=== PATIENT | female | born 1985 | race Hispanic/Latino ===

== ENCOUNTER → 2018-08-28 | Outpatient (CLI) | payer OTHER ==
[~2018-08-28] MED LIST: LEVO25TA5 PO; MIRA3350 PO
[2018-08-28 13:44] LABS: BASO # 0.1 10^3/uL (0.0-0.2); BASO % 0.8 % (0.0-1.0); EOS # 0.1 10^3/uL (0.0-0.50); EOS % 0.9 % (0.0-3.0); HEMATOCRIT 42.9 % (36.0-47.0); LYMPH # 2.1 10^3/uL (1.5-4.5); LYMPH % 32.4 % (24.0-44.0); MEAN CORPUSCULAR HEMOGLOBIN 28.9 pg (27.0-33.0); MEAN CORPUSCULAR HGB CONC 32.6 g/dl (32.0-36.5); MEAN CORPUSCULAR VOLUME 88.5 fl (80.0-96.0); MONO # 0.5 10^3/uL (0.0-0.8); MONO % 7.4 % (0.0-5.0); NEUTROPHILS # 3.8 10^3/uL (1.8-7.7); PLATELET COUNT, AUTOMATED 308 10^3/uL (150-450); RED BLOOD COUNT 4.85 10^6/uL (4.00-5.40); WHITE BLOOD COUNT 6.5 10^3/uL (4.0-10.0)
[2018-08-28 14:42] LABS: ALBUMIN 4.1 GM/DL (3.2-5.2); ALT/SGPT 16 U/L (12-78); BILIRUBIN,TOTAL 1.3 MG/DL (0.2-1.0); BLOOD UREA NITROGEN 10 MG/DL (7-18); CALCIUM LEVEL 8.9 MG/DL (8.5-10.1); CARBON DIOXIDE LEVEL 25 MEQ/L (21-32); CHLORIDE LEVEL 107 MEQ/L (98-107); CHOLESTEROL LEVEL 227 MG/DL (<200); CHOLESTEROL RISK RATIO 5.159 (<5); CREATININE FOR GFR 0.75 MG/DL (0.55-1.30); FREE T4 1.01 NG/DL (0.76-1.46); GLOMERULAR FILTRATION RATE > 60.0 (>60); GLUCOSE, FASTING 86 MG/DL (70-100); HDL CHOLESTEROL 44 MG/DL (>40); LDL CHOLESTEROL 162 MG/DL (<100); NON-HDL-C 183 MG/DL; POTASSIUM SERUM 4.3 MEQ/L (3.5-5.1); SODIUM LEVEL 140 MEQ/L (136-145); TRIGLYCERIDES LEVEL 106 MG/DL (<150)
[2018-08-28 15:27] LABS: TOTAL 25(OH) VITAMIN D 23.6 NG/ML (30.0-100.0)
--- NOTE | 2018-08-28 19:55 | REP ---
Clinical: Left shoulder pain . Technique: Internal rotation, external rotation, and Y view. Findings: No acute fracture or dislocation. The acromioclavicular and glenohumeral joints are intact. No periarticular calcifications or degenerative changes are appreciated. Sub acromial space is normal. Surrounding soft tissues are unremarkable. Impression: Normal left shoulder radiographs. Electronically Signed by Madhu Garrett MD 08/28/2018 07:47 P
[2018-08-29 10:54] LABS: THYROID PEROXIDASE ANTIBODY < 28.0 U/ML (<60.0)
== END ==
LOC: M SMT 09:02
PROVIDERS: ATTEND Physician Assistant
DX: Z13.29 Encounter for screening for other suspected endocrine disorder (principal); E03.9 Hypothyroidism, unspecified; M25.512 Pain in left shoulder

== ENCOUNTER → 2018-12-03 | Outpatient (REF) | payer OTHER ==
[2018-12-03 18:15] LABS: ALBUMIN 4.2 GM/DL (3.2-5.2); ALT/SGPT 19 U/L (12-78); BILIRUBIN,TOTAL 1.1 MG/DL (0.2-1.0); BLOOD UREA NITROGEN 10 MG/DL (7-18); CARBON DIOXIDE LEVEL 27 MEQ/L (21-32); CHLORIDE LEVEL 107 MEQ/L (98-107); CREATININE FOR GFR 0.73 MG/DL (0.55-1.30); FREE T4 0.96 NG/DL (0.76-1.46); GLOMERULAR FILTRATION RATE > 60.0 (>60); GLUCOSE, FASTING 87 MG/DL (70-100); POTASSIUM SERUM 3.9 MEQ/L (3.5-5.1); SODIUM LEVEL 139 MEQ/L (136-145); TOTAL PROTEIN 7.3 GM/DL (6.4-8.2)
[2018-12-03 18:18] LABS: LUTEINIZING HORMONE 4.1 mIU/mL
[2018-12-03 18:32] LABS: HEMOGLOBIN A1c 5.4 %
[2018-12-06 00:06] LABS: INSULIN LEVEL 9.2 uIU/mL (2.6-24.9)
== END ==
LOC: M LABSMT 16:58
PROVIDERS: ATTEND Family Medicine
DX: N92.1 Excessive and frequent menstruation with irregular cycle (principal)

== ENCOUNTER → 2019-04-20 | Outpatient (CLI) | payer OTHER ==
[~2019-04-20] MED LIST changes: +DOCU100C16 PO; +IBUP80TA PO; +PERCOCET PO; +PHEN-239 PO
[2019-04-20 14:24] LABS: ALBUMIN 4.1 GM/DL (3.2-5.2); ALT/SGPT 28 U/L (12-78); BILIRUBIN,TOTAL 1.2 MG/DL (0.2-1.0); BLOOD UREA NITROGEN 11 MG/DL (7-18); CALCIUM LEVEL 9.1 MG/DL (8.5-10.1); CARBON DIOXIDE LEVEL 25 MEQ/L (21-32); CHLORIDE LEVEL 108 MEQ/L (98-107); CHOLESTEROL LEVEL 201 MG/DL (<200); CHOLESTEROL RISK RATIO 3.722 (<5); CREATININE FOR GFR 0.79 MG/DL (0.55-1.30); FREE T4 0.98 NG/DL (0.76-1.46); GLOMERULAR FILTRATION RATE > 60.0 (>60); GLUCOSE, FASTING 80 MG/DL (70-100); HDL CHOLESTEROL 54 MG/DL (>40); LDL CHOLESTEROL 136 MG/DL (<100); NON-HDL-C 147 MG/DL; POTASSIUM SERUM 4.6 MEQ/L (3.5-5.1); SODIUM LEVEL 140 MEQ/L (136-145); TOTAL 25(OH) VITAMIN D 26.5 NG/ML (30.0-100.0); TOTAL PROTEIN 7.5 GM/DL (6.4-8.2); TRIGLYCERIDES LEVEL 53 MG/DL (<150)
== END ==
LOC: M SMT 09:32
PROVIDERS: ATTEND Family Medicine
DX: E78.00 Pure hypercholesterolemia, unspecified (principal); E55.9 Vitamin D deficiency, unspecified; E03.9 Hypothyroidism, unspecified

== ENCOUNTER → 2019-05-28 | Outpatient (REF) | payer OTHER ==
[~2019-05-28] MED LIST changes: -DOCU100C16 PO; -IBUP80TA PO; -PERCOCET PO; -PHEN-239 PO
== END ==
LOC: M SFHCLERA 10:34
PROVIDERS: ATTEND Nurse Practitioner Family
DX: R50.9 Fever, unspecified (principal)

== ENCOUNTER → 2019-05-29 | Outpatient (CLI) | payer OTHER ==
--- NOTE | 2019-05-29 18:18 | REP ---
HISTORY: Vaginal bleeding COMPARISON: 12/08/2018, which showed myomatous change, stable from older exam and incidental nabothian cysts. The myomatous change had a maximal dimension of 1.8 cm on that prior exam. Transvesical and transvaginal imaging was obtained. The uterus measures 7.7 x 3.7 x 4.9 cm. The parenchymal echo pattern is essentially unchanged. Once again, there is a small mixed echo structure in the uterus which is essentially unchanged from the prior exam. The endometrial echo complex has a maximal thickness of 5 mm and is homogeneous in appearance. There is no abnormal fluid in the cul-de-sac. The right ovary measures 2.2 x 1.8 x 2.2 cm and is within normal limits with an RI of 0.44. The left ovary measures 3.2 x 1.2 x 2.6 cm and is within normal limits with an RI of 0.49. Urinary bladder measures 13. X 9 x 11 cm. IMPRESSION: There are mild uterine myomatous changes essentially unchanged from the prior exam. Electronically Signed by Ahmet Larios DO 06/01/2019 02:32 P
== END ==
LOC: M RAD 13:41
PROVIDERS: ATTEND Obstetrics & Gynecology
DX: N93.9 Abnormal uterine and vaginal bleeding, unspecified (principal)

== ENCOUNTER 2019-07-13 05:53 | Day surgery (SDC) | payer OTHER ==
[~2019-07-13] VITALS: Ht 157.5 cm; Wt 73.5 kg
[2019-07-13] VITALS (9 sets, daily range): BP systolic 106–129; BP diastolic 52–72
[~2019-07-13 05:53] MED LIST changes: +PHEN-239 PO
[2019-07-13] MEDS ORDERED: LR 1,000 ML IV ONE (06:00)
[2019-07-13 06:33] LABS: HEMATOCRIT 44.9 % (36.0-47.0); HEMOGLOBIN 14.7 g/dl (12.0-15.5); MEAN CORPUSCULAR HEMOGLOBIN 28.9 pg (27.0-33.0); MEAN CORPUSCULAR HGB CONC 32.7 g/dl (32.0-36.5); MEAN CORPUSCULAR VOLUME 88.2 fl (80.0-96.0); PLATELET COUNT, AUTOMATED 320 10^3/uL (150-450); RED BLOOD COUNT 5.09 10^6/uL (4.00-5.40); WHITE BLOOD COUNT 7.2 10^3/uL (4.0-10.0)
[2019-07-13 06:53] LABS: HCG, SERUM QUALITATIVE NEGATIVE (NEGATIVE)
[2019-07-13] MEDS ORDERED: PROPOFOL 200 MG/20 ML VIAL As Ordered ONE (06:58)
[2019-07-13] MEDS ORDERED: LIDOCAINE 2% INJ 100 MG/5 ML SDV (FOR ANES.) As Ordered ONE (06:58)
[2019-07-13] MEDS ORDERED: ROCURONIUM BROMIDE 50 MG/5 ML VIAL As Ordered ONE ×2 (06:58→08:30)
[2019-07-13] MEDS ORDERED: dexameTHASONE 4 MG/ML 1ML VIAL (J1100) As Ordered ONE ×2 (06:59→07:38)
[2019-07-13] MEDS ORDERED: KETOROLAC 60 MG/2 ML VIAL (J1885) As Ordered ONE (06:59)
[2019-07-13] MEDS ORDERED: ONDANSETRON 4MG/2ML VIAL (J2405) As Ordered ONE (06:59)
[2019-07-13] MEDS ORDERED: METHYLENE BLUE 0.5% (5MG/ML) 10 ML AMP (PROVAYBLUE)(Q9968 PER 1MG) As Ordered ONE (07:02)
[2019-07-13] MEDS ORDERED: fentaNYL 250 MCG/5 ML INJECTION (J3010) As Ordered ONE (07:03)
[2019-07-13] MEDS ORDERED: MIDAZOLAM INJ 2 MG/2 ML VIAL (J2250) As Ordered ONE (07:04)
[2019-07-13] MEDS ORDERED: ceFAZolin 2 GM/D5W 50 ML IV BAG (J0690 PER 500MG) As Ordered ONE (07:33)
[2019-07-13] MEDS ORDERED: ceFAZolin SOD 2 GM in IV 1 EA IV ONE (07:45)
[2019-07-13] MEDS ORDERED: LACRILUBE (AKWA TEARS) OPHTH OINT 3.5 GM As Ordered ONE (07:47)
[2019-07-13] MEDS ORDERED: CLINDAMYCIN 900 MG/50 ML PREMIX BAG As Ordered ONE (07:51)
[2019-07-13] MEDS ORDERED: GENTAMICIN SULF INJ 80MG/2ML VIAL (J1580) As Ordered ONE (07:52)
[2019-07-13] MEDS: GENTAMICIN SULF INJ 80MG/2ML VIAL (J1580) As Ordered ONE ×2 (07:55→08:07)
[2019-07-13] MEDS ORDERED: ACETAMINOPHEN 1000MG 100ML IV BTL (OFIRMEV) (J0131 PER 10MG) As Ordered ONE (08:12)
[2019-07-13] MEDS: BUPIVACAINE HCL 0.25% 30 ML VIAL As Ordered ONE (08:15)
[2019-07-13] MEDS ORDERED: SUGAMMADEX SODIUM 500 MG/5 ML VIAL (BRIDION) As Ordered ONE (08:26)
[2019-07-13] MEDS ORDERED: HYDROmorphone HCL 2 MG/ML 1ML VIAL (J1170) As Ordered ONE (09:16)
[2019-07-13] MEDS ORDERED: ONDANSETRON 4 MG ORAL DISINTEGRATING TAB (Q0162 PER 1MG) PO PRN (09:45)
[2019-07-13] MEDS ORDERED: PERCOCET 5MG/325MG TAB PO PRN ×2 (09:45→10:00)
[2019-07-13] MEDS ORDERED: PROMETHAZINE INJ 25 MG/ML VIAL (J2550) IV PRN (09:45)
[2019-07-13] MEDS ORDERED: ONDANSETRON 4MG/2ML VIAL (J2405) IV PRN (10:00)
[2019-07-13] MEDS ORDERED: LR 1,000 ML IV SCH (10:00)
[2019-07-13] MEDS ORDERED: METOCLOPRAMIDE INJ 10MG/2ML VIAL (J2765) IV PRN (10:00)
[2019-07-13] MEDS: fentaNYL 100 MCG/2 ML INJECTION (J3010) IV PRN ×4 (10:11→10:46)
[2019-07-13] MEDS: PERCOCET 5MG/325MG TAB PO PRN ×2 (10:43→11:12)
[2019-07-13] MEDS ORDERED: METOCLOPRAMIDE INJ 10MG/2ML VIAL (J2765) As Ordered ONE (11:11)
[2019-07-13] MEDS: LR 1,000 ML IV SCH ×2 (12:20→22:45)
[2019-07-13] MEDS: KETOROLAC 30 MG/ML VIAL (J1885) IV SCH ×2 (15:16→20:16)
[2019-07-13] MEDS: DOCUSATE SODIUM 100 MG CAP PO SCH (20:16)
[2019-07-14] VITALS: BP 116/59
[2019-07-14] MEDS: KETOROLAC 30 MG/ML VIAL (J1885) IV SCH ×2 (03:40→09:24)
[2019-07-14 03:51] VITALS: BP 114/58
[2019-07-14] MEDS ORDERED: LEVOTHYROXINE 25MCG TABLET (0.025MG) PO SCH (06:00)
[2019-07-14 06:07] LABS: BASO % 0.2 % (0.0-1.0); EOS % 0.1 % (0.0-3.0); HEMATOCRIT 34.1 % (36.0-47.0); LYMPH # 1.6 10^3/uL (1.5-5.0); LYMPH % 14.1 % (24.0-44.0); MEAN CORPUSCULAR HEMOGLOBIN 29.3 pg (27.0-33.0); MEAN CORPUSCULAR HGB CONC 32.3 g/dl (32.0-36.5); MEAN CORPUSCULAR VOLUME 90.7 fl (80.0-96.0); NEUTROPHILS # 8.6 10^3/uL (1.5-8.5); NEUTROPHILS % 76.2 % (36.0-66.0); PLATELET COUNT, AUTOMATED 233 10^3/uL (150-450); RED BLOOD COUNT 3.76 10^6/uL (4.00-5.40); WHITE BLOOD COUNT 11.3 10^3/uL (4.0-10.0)
[2019-07-14] MEDS: LR 1,000 ML IV SCH (06:40)
[2019-07-14 07:50] VITALS: BP 131/73
[2019-07-14] MEDS: DOCUSATE SODIUM 100 MG CAP PO SCH (09:24)
[2019-07-14] MEDS ORDERED: IBUP80TA PO (09:30)
[2019-07-14] MEDS ORDERED: PERCOCET PO (09:30)
[2019-07-14] MEDS ORDERED: DOCU100C16 PO (09:30)
[2019-07-14] MEDS: PERCOCET 5MG/325MG TAB PO PRN ×2 (10:19→14:55)
[2019-07-14 12:00] VITALS: BP 120/57
[2019-07-14] MEDS ORDERED: IBUPROFEN 800 MG TAB PO SCH (17:00)
== END 2019-07-14 17:15 | disposition home or self-care (01) ==
LOC: M SDC 05:53 → MERGE 07:30 → M PED 12:15 → M SDC 07-14 17:15
PROVIDERS: ATTEND Obstetrics & Gynecology
DX: N39.3 Stress incontinence (female) (male) (principal); D25.9 Leiomyoma of uterus, unspecified; E03.9 Hypothyroidism, unspecified; Z79.899 Other long term (current) drug therapy; Z88.0 Allergy status to penicillin
CPT/HCPCS: 36415; 58571; 81025; 84703; 85025; 85027; 86850; 86900; 86901; 88307; 96361; 96374; 96375; 96376; J0131; J1100; J1170; J1580; J1885; J2250; J2405; J2765; J3010; Q0162; Q9968

== ENCOUNTER → 2019-07-21 | Outpatient (CLI) | payer OTHER ==
[~2019-07-21] MED LIST changes: +DOCU100C16 PO; +IBUP80TA PO; +PERCOCET PO
[2019-07-21 13:38] LABS: ALBUMIN 3.6 GM/DL (3.2-5.2); ALT/SGPT 39 U/L (12-78); BILIRUBIN,TOTAL 0.5 MG/DL (0.2-1.0); BLOOD UREA NITROGEN 13 MG/DL (7-18); CALCIUM LEVEL 9.3 MG/DL (8.5-10.1); CARBON DIOXIDE LEVEL 27 MEQ/L (21-32); CHLORIDE LEVEL 108 MEQ/L (98-107); CREATININE FOR GFR 0.71 MG/DL (0.55-1.30); GLOMERULAR FILTRATION RATE > 60.0 (>60); GLUCOSE, FASTING 86 MG/DL (70-100); POTASSIUM SERUM 4.6 MEQ/L (3.5-5.1); SODIUM LEVEL 142 MEQ/L (136-145); TOTAL PROTEIN 7.6 GM/DL (6.4-8.2)
[2019-07-21 13:43] LABS: HEMATOCRIT 40.9 % (36.0-47.0); HEMOGLOBIN 12.8 g/dl (12.0-15.5); MEAN CORPUSCULAR HEMOGLOBIN 28.4 pg (27.0-33.0); MEAN CORPUSCULAR HGB CONC 31.3 g/dl (32.0-36.5); MEAN CORPUSCULAR VOLUME 90.9 fl (80.0-96.0); PLATELET COUNT, AUTOMATED 381 10^3/uL (150-450); WHITE BLOOD COUNT 7.7 10^3/uL (4.0-10.0)
== END ==
LOC: M PLALAB 09:27
PROVIDERS: ATTEND Obstetrics & Gynecology
DX: R42 Dizziness and giddiness (principal)

== ENCOUNTER → 2019-08-26 | Outpatient (CLI) | payer OTHER ==
[2019-08-26 13:12] LABS: BASO # 0.1 10^3/uL (0.0-0.2); BASO % 0.8 % (0.0-1.0); EOS # 0.1 10^3/uL (0.0-0.5); EOS % 0.8 % (0.0-3.0); HEMATOCRIT 41.6 % (36.0-47.0); HEMOGLOBIN 13.6 g/dl (12.0-15.5); LYMPH # 2.1 10^3/uL (1.5-5.0); LYMPH % 24.6 % (24.0-44.0); MEAN CORPUSCULAR HEMOGLOBIN 29.1 pg (27.0-33.0); MEAN CORPUSCULAR HGB CONC 32.7 g/dl (32.0-36.5); MEAN CORPUSCULAR VOLUME 89.1 fl (80.0-96.0); MONO # 0.6 10^3/uL (0.0-0.8); MONO % 6.6 % (0.0-5.0); NEUTROPHILS # 5.6 10^3/uL (1.5-8.5); NEUTROPHILS % 65.3 % (36.0-66.0); PLATELET COUNT, AUTOMATED 540 10^3/uL (150-450); RED BLOOD COUNT 4.67 10^6/uL (4.00-5.40); WHITE BLOOD COUNT 8.5 10^3/uL (4.0-10.0)
[2019-08-26 14:03] LABS: ALBUMIN 4.1 GM/DL (3.2-5.2); ALT/SGPT 22 U/L (12-78); BILIRUBIN,TOTAL 1.2 MG/DL (0.2-1.0); BLOOD UREA NITROGEN 9 MG/DL (7-18); CALCIUM LEVEL 9.4 MG/DL (8.5-10.1); CARBON DIOXIDE LEVEL 27 MEQ/L (21-32); CHLORIDE LEVEL 108 MEQ/L (98-107); CHOLESTEROL LEVEL 223 MG/DL (<200); CHOLESTEROL RISK RATIO 4.744 (<5); CREATININE FOR GFR 0.88 MG/DL (0.55-1.30); FREE T4 1.15 NG/DL (0.76-1.46); GLOMERULAR FILTRATION RATE > 60.0 (>60); GLUCOSE, FASTING 78 MG/DL (70-100); HDL CHOLESTEROL 47 MG/DL (>40); LDL CHOLESTEROL 162 MG/DL (<100); NON-HDL-C 176 MG/DL; POTASSIUM SERUM 4.9 MEQ/L (3.5-5.1); SODIUM LEVEL 141 MEQ/L (136-145); TOTAL 25(OH) VITAMIN D 39.5 NG/ML (30.0-100.0); TRIGLYCERIDES LEVEL 71 MG/DL (<150)
== END ==
LOC: M PLALAB 09:47
PROVIDERS: ATTEND Physician Assistant
DX: E78.00 Pure hypercholesterolemia, unspecified (principal); E03.9 Hypothyroidism, unspecified

== ENCOUNTER → 2020-01-11 | Outpatient (CLI) | payer OTHER ==
[2020-01-11 15:34] LABS: ALT/SGPT 23 U/L (12-78); BILIRUBIN,TOTAL 1.3 MG/DL (0.2-1.0); BLOOD UREA NITROGEN 8 MG/DL (7-18); CALCIUM LEVEL 9.1 MG/DL (8.5-10.1); CARBON DIOXIDE LEVEL 26 MEQ/L (21-32); CHLORIDE LEVEL 108 MEQ/L (98-107); CHOLESTEROL LEVEL 222 MG/DL (<200); CHOLESTEROL RISK RATIO 4.826 (<5); CREATININE FOR GFR 0.76 MG/DL (0.55-1.30); FREE T4 0.96 NG/DL (0.76-1.46); GLOMERULAR FILTRATION RATE > 60.0 (>60); GLUCOSE, FASTING 83 MG/DL (70-100); HDL CHOLESTEROL 46 MG/DL (>40); LDL CHOLESTEROL 154 MG/DL (<100); NON-HDL-C 176 MG/DL; POTASSIUM SERUM 4.1 MEQ/L (3.5-5.1); SODIUM LEVEL 140 MEQ/L (136-145); THYROID STIMULATING HORMONE 0.854 uIU/ML (0.358-3.740); TOTAL PROTEIN 7.7 GM/DL (6.4-8.2); TRIGLYCERIDES LEVEL 108 MG/DL (<150)
== END ==
LOC: M PLALAB 12:59
PROVIDERS: ATTEND Physician Assistant
DX: E78.00 Pure hypercholesterolemia, unspecified (principal); E03.9 Hypothyroidism, unspecified

== ENCOUNTER → 2020-08-23 | Outpatient (CLI) | payer OTHER ==
[2020-08-23 15:15] LABS: BASO # 0.1 10^3/uL (0.0-0.2); BASO % 0.9 % (0.0-1.0); EOS # 0.2 10^3/uL (0.0-0.5); EOS % 2.3 % (0.0-3.0); HEMATOCRIT 41.2 % (36.0-47.0); HEMOGLOBIN 13.5 g/dl (12.0-15.5); LYMPH # 2.1 10^3/uL (1.5-5.0); LYMPH % 28.5 % (24.0-44.0); MEAN CORPUSCULAR HEMOGLOBIN 28.5 pg (27.0-33.0); MEAN CORPUSCULAR HGB CONC 32.8 g/dl (32.0-36.5); MEAN CORPUSCULAR VOLUME 87.1 fl (80.0-96.0); MONO # 0.5 10^3/uL (0.0-0.8); NEUTROPHILS # 4.5 10^3/uL (1.5-8.5); NEUTROPHILS % 60.6 % (36.0-66.0); PLATELET COUNT, AUTOMATED 312 10^3/uL (150-450); RED BLOOD COUNT 4.73 10^6/uL (4.00-5.40); WHITE BLOOD COUNT 7.4 10^3/uL (4.0-10.0)
[2020-08-23 15:50] LABS: BLOOD UREA NITROGEN 14 MG/DL (7-18); CALCIUM LEVEL 9.2 MG/DL (8.5-10.1); CARBON DIOXIDE LEVEL 28 MEQ/L (21-32); CHLORIDE LEVEL 104 MEQ/L (98-107); CREATININE FOR GFR 0.72 MG/DL (0.55-1.30); FREE T4 0.86 NG/DL (0.76-1.46); GLOMERULAR FILTRATION RATE > 60.0 (>60); GLUCOSE, FASTING 111 MG/DL (70-100); POTASSIUM SERUM 4.3 MEQ/L (3.5-5.1); SODIUM LEVEL 139 MEQ/L (136-145)
[2020-08-23 17:42] LABS: TOTAL 25(OH) VITAMIN D 23.2 NG/ML (30.0-100.0)
== END ==
LOC: M PLALAB 13:39
PROVIDERS: ATTEND Physician Assistant
DX: E66.8 Other obesity (principal); E55.9 Vitamin D deficiency, unspecified; R53.83 Other fatigue

== ENCOUNTER 2020-11-04 15:36 | Emergency (ER) | payer OTHER ==
[~2020-11-04] VITALS: Ht 160 cm; Wt 86.5 kg
[2020-11-04 18:21] VITALS: BP 136/88
== END 2020-11-04 18:28 | disposition home or self-care (01) ==
LOC: M ED 15:36
DX: J02.9 Acute pharyngitis, unspecified (principal); M79.10 Myalgia, unspecified site; J34.89 Other specified disorders of nose and nasal sinuses; Z20.822 Contact with and (suspected) exposure to COVID-19; Z79.899 Other long term (current) drug therapy
CPT/HCPCS: 87804; 87880; 99284; U0003

== ENCOUNTER → 2021-03-16 | Outpatient (CLI) | payer OTHER ==
[2021-03-16 11:16] LABS: BASO # 0.1 10^3/uL (0.0-0.2); BASO % 1.1 % (0.0-1.0); EOS # 0.3 10^3/uL (0.0-0.5); EOS % 4.4 % (0.0-3.0); LYMPH # 1.7 10^3/uL (1.5-5.0); LYMPH % 27.7 % (24.0-44.0); MEAN CORPUSCULAR HEMOGLOBIN 29.2 pg (27.0-33.0); MEAN CORPUSCULAR HGB CONC 33.3 g/dl (32.0-36.5); MEAN CORPUSCULAR VOLUME 87.5 fl (80.0-96.0); MONO # 0.5 10^3/uL (0.0-0.8); MONO % 8.9 % (2.0-8.0); NEUTROPHILS # 3.5 10^3/uL (1.5-8.5); NEUTROPHILS % 57.4 % (36.0-66.0); PLATELET COUNT, AUTOMATED 310 10^3/uL (150-450); WHITE BLOOD COUNT 6.1 10^3/uL (4.0-10.0)
[2021-03-16 11:57] LABS: ALBUMIN 3.8 GM/DL (3.2-5.2); ALT/SGPT 26 U/L (12-78); BILIRUBIN,TOTAL 1.3 MG/DL (0.2-1.0); BLOOD UREA NITROGEN 12 MG/DL (7-18); CALCIUM LEVEL 8.5 MG/DL (8.5-10.1); CARBON DIOXIDE LEVEL 26 MEQ/L (21-32); CHLORIDE LEVEL 108 MEQ/L (98-107); CHOLESTEROL LEVEL 226 MG/DL (<200); CHOLESTEROL RISK RATIO 5.947 (<5); CREATININE FOR GFR 0.69 MG/DL (0.55-1.30); FREE T4 0.85 NG/DL (0.76-1.46); GLOMERULAR FILTRATION RATE > 60.0 (>60); GLUCOSE, FASTING 89 MG/DL (70-100); HDL CHOLESTEROL 38 MG/DL (>40); LDL CHOLESTEROL 166 MG/DL (<100); NON-HDL-C 188 MG/DL; POTASSIUM SERUM 4.6 MEQ/L (3.5-5.1); SODIUM LEVEL 138 MEQ/L (136-145); TOTAL PROTEIN 7.5 GM/DL (6.4-8.2); TRIGLYCERIDES LEVEL 112 MG/DL (<150)
== END ==
LOC: M PLALAB 09:13
PROVIDERS: ATTEND Physician Assistant
DX: E03.9 Hypothyroidism, unspecified (principal); E55.9 Vitamin D deficiency, unspecified; E78.00 Pure hypercholesterolemia, unspecified; R05 Cough